=== PATIENT | male | born 1955 ===

== ENCOUNTER 2016-11-07 09:24 | Outpatient (CLI) | payer MEDICARE ==
--- NOTE | 2016-11-07 12:16 | Fluoroscopy Report ---
Modified barium swallow with video fluoroscopy.: History: Dysphagia. Findings: There is no obstruction noted to liquids, semisolid and solid food. No aspiration. Complete information will be provided by speech therapist. Impression: Findings as detailed above.
== END 2016-11-07 09:25 | disposition home or self-care (01) ==
LOC: PT 09:24
PROVIDERS: ATTEND Internal Medicine
DX: R13.12 Dysphagia, oropharyngeal phase (principal)
CPT/HCPCS: 74230; 92611; G8996; G8997; G8998